=== PATIENT | male | born 1955 | race African-American/Black ===

== ENCOUNTER 2021-05-26 11:45 | Emergency (ER) | payer OTHER, MEDICARE ==
[~2021-05-26 11:45] MED LIST: ERYTHROMYCIN O3.5 GM OS; NORCO 5-325 TA1 EACH PO
== END 2021-05-26 15:00 | disposition home or self-care (01) ==
LOC: ER1 11:45
DX: S01.01XA Laceration without foreign body of scalp, initial encounter (principal); F17.200 Nicotine dependence, unspecified, uncomplicated; Z23 Encounter for immunization; W22.8XXA Striking against or struck by other objects, initial encounter; Y92.009 Unspecified place in unspecified non-institutional (private) residence as the place of occurrence of the external cause
CPT/HCPCS: 70450; 90471; 90714; 99284